=== PATIENT | female | born 1955 | race Caucasian/White ===

== ENCOUNTER → 2022-08-01 09:23 | Outpatient (CLI) | payer MEDICARE, SELFPAY ==
--- NOTE | 2022-08-01 09:25 | CA_ITS ---
APPROVED REPORT EXAM: Comprehensive 2D, Doppler, and color-flow Echocardiogram Tax Compliance Manager: Lilia Sweet RVT Ht: 5 ft 2 in Wt: 176lbs BSA: 1.81 BP: 122/71 mmHg Indications: SOA,ABN EKG,PRIOR CVA 2D Dimensions LVOT 1.93 cm (M/F) 1.5-2.5 LA Volume 25.70 mL LA Volume Index 14.19 mL/m2 (M/F) 16-34 M-Mode Dimensions RVDd 2.04 cm (0.9-2.6) LA Diam 4.79 cm (1.9-4.0) LVDd 4.55 cm (3.5-5.7) Ao Diam 2.32 cm (2.0-3.7) LVDs 2.85 cm (3.5-5.7) IVSd 0.54 cm (0.6-1.1) PWd 0.57 cm (0.6-1.1) EF (Teich) 67.40% FS 37.40% EDV (Teich) 94.90 mL TAPSE 2.36 (<1.7) ESV (Teich) 30.90 mL LV Diastology E Decel Time 210.00 (160-240 msec) E/A Ratio 0.9 MED E' 9.60 (< 7 cm/sec) E'/MED E' Ratio 8.90 (>14) LAT E' 11.40 (<10 cm/sec) E/LAT E' Ratio 7.49 (>14) Aortic Valve AO Peak GR. 5.60 mmHg Mitral Valve MV E Max Kye. 85.00 (40-130 cm/s) MV A Velocity 95.00 (40-130 cm/s) E/A Ratio 0.90 MV Decel. Time 210.00 (160-240 ms) MV PHT 62.00 ms Pulmonary Valve PV Peak Velocity 73.00 (50-150 cm/s) Tricuspid Valve TR P. Velocity 283.00 cm/s RAP Estimate 10.00 mmHg RVSP 42.10 mmHg Left Ventricle Left atrium is mildly enlarged, left ventricle is normal size, estimated ejection fraction 55% with no regional wall motion abnormality, diastolic parameters are inconclusive. Right Ventricle Right atrium and right ventricle are normal size and contractility. Aortic Valve Aortic valve is minimally thickened and fibrosed there is no aortic stenosis or aortic insufficiency. Mitral Valve Mitral valve is grossly normal, there is trace mitral regurgitation. Tricuspid Valve Tricuspid valve grossly normal, there is trace tricuspid regurgitation. Pulmonic Valve Pulmonic valve is poorly visualized. Great Vessels Aortic root is normal size. Inferior vena cava is mildly dilated with normal inspiratory collapse. Pericardium No significant pericardial effusion noted. Conclusion 1. Normal left ventricular size preserved left ventricular systolic function, estimated ejection fraction 55% with no regional wall motion abnormality, diastolic parameters are inconclusive in the study. 2. Trace mitral and tricuspid regurgitation. 3. No significant pericardial effusion. 4. Inferior vena cava is mildly dilated with normal inspiratory collapse. Electronically signed by : Eduardo Quiroga MD 08/02/2022 05:39:40
--- NOTE | 2022-08-01 09:38 | CA_ITS ---
FINAL REPORT TECHNIQUE: Color Doppler, duplex Doppler and rogers scale sonography of the bilateral neck arterial vasculature was performed. Velocities were measured in the carotid arteries. Stenosis evaluation based on the validated velocity criteria. CLINICAL HISTORY: LT BRUIT,PRIOR CVA FINDINGS: The peak systolic velocity of the right common carotid artery is 81 cm/s. The peak systolic velocity of the right internal carotid artery is 108 cm/s and end diastolic velocity 36 cm/s. The ICA/CCA ratio is 1.3. A small amount of plaque is present. The right external carotid artery is patent. The right vertebral artery is patent with antegrade flow. The peak systolic velocity of the left common carotid artery is 73 cm/s. The peak systolic velocity of the left internal carotid artery is 101 cm/s and end diastolic velocity 40 cm/s. The ICA/CCA ratio is 1.4. A small amount of plaque is present. The left external carotid artery is patent.The left vertebral artery is patent with antegrade flow. IMPRESSION: Less than 50% bilateral carotid stenoses. Bilateral patent vertebral arteries with antegrade flow. If indicated, CTA or MRA could further evaluate. Reviewed, Interpreted and Dictated by Brenden Batista III, MD Transcribed by Tanna Humphrey Authenticated and [facility]
[2022-08-01 10:29] LABS: MANUAL DIFFERENTIAL MANUAL DIFFERENTIAL (MANUAL DIFF)
[2022-08-01 11:24] LABS: Basophils # 0.2 K/mm3 (0-0.2); Basophils % 1.8 % (0.1-2.0); Eosinophils # 0.3 K/mm3 (0.0-0.4); Eosinophils % 3.1 % (0.1-12.0); Hematocrit 42.8 % (37.0-47.0); Hemoglobin 13.4 g/dL (12.2-16.2); Lymphocytes # 2.1 K/mm3 (0.7-4.5); Lymphocytes % 25.2 % (10-50); Mean Corpuscular HGB Conc 31.3 g/dL (31.8-35.4); Mean Corpuscular Hemoglobin 30.7 pg (27.0-31.2); Mean Platelet Volume 9.1 fl (7.4-10.4); Monocytes # 0.7 K/mm3 (0.1-1.0); Monocytes % 8.2 % (1.7-9.3); Neutrophils # 5.1 K/mm3 (1.8-7.8); Neutrophils % 61.8 % (37.0-80.0); Platelet Count 445 K/mm3 (142-424); Red Blood Count 4.36 M/mm3 (4.20-5.40); Red Cell Distribution Width 13.6 % (11.5-17.5); White Blood Count 8.2 K/mm3 (4.8-10.8)
[2022-08-01 12:53] LABS: Chloride 104 mmol/L (98-107)
[2022-08-01 12:54] LABS: Potassium 4.5 mmoL/L (3.5-5.1); Sodium 144 mmol/L (136-145)
[2022-08-01 12:56] LABS: Alanine Aminotransferase 21 U/L (12-78); Alkaline Phosphatase 172 U/L (38-126); Anion Gap 16.5 mEq/L (5-15); Aspartate Amino Transferase 37 U/L (14-36); Bilirubin,Indirect 0.4 mg/dL (0.0-0.9); Bilirubin,Total 0.4 mg/dl (0.2-1.3); Bilirubin,Unconjugated 0.4 mg/dL (0.0-1.1); Blood Urea Nitrogen 15 mg/dl (7-17); Carbon Dioxide 28 mmol/L (22.0-30.0); Cholesterol 273 mg/dl (140-200); Estimated Glomerular Filt Rate 71 ml/min (>60); GFR (African American) 86 ML/MIN (>60); Triglycerides 95 mg/dl (30-150); VLDL Cholesterol 19 mg/dL (0-40)
[2022-08-01 12:57] LABS: Albumin Level 4.5 g/dl (3.5-5.0); Calcium 9.6 mg/dl (8.4-10.2); Chol/HDL Ratio 3.4 (1-3.5); Glucose 82 mg/dl (74-100); HDL Cholesterol 80 mg/dl (40-60); Total Protein,Serum 7.4 g/dl (6.3-8.2)
[2022-08-01 12:58] LABS: Lymphocytes % 29 % (10-50); Monocytes % 8 % (2-9); Neutrophils % 63 % (42-76); Platelet Estimate Slight Increase; RBC Morphology Normal; Total Cells Counted 100
[2022-08-01 13:10] LABS: Direct LDL Cholesterol 131.51 mg/dL (100-129)
[2022-08-01 13:11] LABS: Free T4 (Free Thyroxine) 1.34 ng/dl (0.78-2.19)
[2022-08-01 13:24] LABS: Thyroid Stimulating Hormone 0.15 uIU/mL (0.465-4.68)
== END ==
PROVIDERS: PCP Family Medicine; Visit Provider Internal Medicine
DX: R09.89 Other specified symptoms and signs involving the circulatory and respiratory systems; R42 Dizziness and giddiness; R94.31 Abnormal electrocardiogram [ECG] [EKG]; Z86.73 Personal history of transient ischemic attack (TIA), and cerebral infarction without residual deficits; I63.9 Cerebral infarction, unspecified; I65.23 Occlusion and stenosis of bilateral carotid arteries
CPT/HCPCS: 36415; 80048; 80061; 80076; 84439; 84443; 85007; 85014; 85018; 85048; 85049; 93306; 93880